=== PATIENT | female | born 1990 | race Caucasian/White ===

== ENCOUNTER → 2020-06-20 | Outpatient (CLI) | payer OTHER ==
[2020-06-21 07:08] LABS: FSH, SERUM 8.1 mIU/mL (.); PROLACTIN 7.3 ng/mL (4.8-23.3)
[2020-06-22 11:08] LABS: INSULIN 7.6 uIU/mL (2.6-24.9)
[2020-06-26 11:15] LABS: TESTOSTERONE, SERUM 71 ng/dL (13-71)
== END ==
LOC: LAB 09:35
PROVIDERS: Physician Assistant
DX: N91.2 Amenorrhea, unspecified (principal)
CPT/HCPCS: 36415; 82627; 82947; 83001; 83002; 84146; 84402; 84403; 84443; 84702